=== PATIENT | female | born 1970 | race Caucasian/White ===

== ENCOUNTER 2016-11-11 13:08 | Emergency (ER) | payer OTHER ==
[~2016-11-11] VITALS: Ht 152.4 cm; Wt 93.0 kg
[2016-11-11 13:08] VITALS: BP 156/84
[2016-11-11] MEDS ORDERED: HYDR-3713 PO (13:25)
[2016-11-11] MEDS ORDERED: CEPH500C PO (13:25)
[2016-11-11] MEDS ORDERED: BACT800T5 PO (14:20)
[2016-11-11] MEDS ORDERED: NORCOTAB PO (14:20)
== END 2016-11-11 15:06 | disposition home or self-care (01) ==
LOC: M ED 14:18
DX: N76.4 Abscess of vulva (principal); E11.9 Type 2 diabetes mellitus without complications; F17.200 Nicotine dependence, unspecified, uncomplicated; Z79.899 Other long term (current) drug therapy; Z91.040 Latex allergy status

== ENCOUNTER 2020-04-17 20:57 | Emergency (ER) | payer OTHER ==
[~2020-04-17] VITALS: Ht 152.4 cm; Wt 91.9 kg
[~2020-04-17 20:57] MED LIST: BACT800T5 PO; CEPH500C PO; HYDR-3713 PO; HYDR-3715 PO
[2020-04-17] MEDS ORDERED: CETI-24 (21:19)
[2020-04-17] MEDS ORDERED: ASPIRIN 81 MG CHEW TABLET PO ONE (21:30)
[2020-04-17] MEDS: NITROGLYCERIN 0.4 MG SUBL TABLET SL PRN ×2 (21:43→21:48)
[2020-04-17 21:48] VITALS: BP 134/75
--- NOTE | 2020-04-17 21:49 | REPVR ---
PROCEDURE INFORMATION: Exam: XR Chest, 1 View Exam date and time: 04/17/2020 9:40 PM Age: 49 years old Clinical indication: Chest pain TECHNIQUE: Imaging protocol: XR of the chest Views: 1 view. COMPARISON: No relevant prior studies available. FINDINGS: Lungs: Degree of lung inflation is normal. No evidence of pulmonary edema. No focal consolidation or parenchymal lung mass. Pleural space: No pleural effusion or pneumothorax. Heart/Mediastinum: Cardiac silhouette appears normal. No adenopathy or hilar mass. Bones/joints: Osseous structures show no concerning abnormality. IMPRESSION: No acute or focal cardiopulmonary process. Electronically signed by: Uriah Araujo On 04/17/2020 21:49:03 PM
[2020-04-17 21:57] LABS: BASO # 0.1 10^3/uL (0.0-0.2); EOS # 0.4 10^3/uL (0.0-0.5); HEMATOCRIT 46.9 % (36.0-47.0); HEMOGLOBIN 16.1 g/dl (12.0-15.5); LYMPH # 3.7 10^3/uL (1.5-5.0); MEAN CORPUSCULAR HEMOGLOBIN 31.3 pg (27.0-33.0); MEAN CORPUSCULAR HGB CONC 34.3 g/dl (32.0-36.5); MEAN CORPUSCULAR VOLUME 91.2 fl (80.0-96.0); MONO # 0.8 10^3/uL (0.0-0.8); MONO % 7.4 % (0.0-5.0); NEUTROPHILS # 5.3 10^3/uL (1.5-8.5); NEUTROPHILS % 51.3 % (36.0-66.0); PLATELET COUNT, AUTOMATED 326 10^3/uL (150-450); RED BLOOD COUNT 5.14 10^6/uL (4.00-5.40); WHITE BLOOD COUNT 10.2 10^3/uL (4.0-10.0)
[2020-04-17 22:06] LABS: INR 0.92; PROTHROMBIN TIME 12.5 SECONDS (12.5-14.3)
[2020-04-17 22:33] LABS: ALBUMIN 3.3 GM/DL (3.2-5.2); ALT/SGPT 16 U/L (12-78); BILIRUBIN,DIRECT < 0.1 MG/DL (0.0-0.2); BILIRUBIN,TOTAL 0.3 MG/DL (0.2-1.0); BLOOD UREA NITROGEN 12 MG/DL (7-18); CALCIUM LEVEL 8.5 MG/DL (8.5-10.1); CARBON DIOXIDE LEVEL 26 MEQ/L (21-32); CHLORIDE LEVEL 98 MEQ/L (98-107); CK-MB VALUE MASS 2.1 NG/ML (<3.6); CPK CREATINE PHOSPHOKINASE 86 U/L (26-192); CREATININE FOR GFR 0.74 MG/DL (0.55-1.30); GLOMERULAR FILTRATION RATE > 60.0 (>51); GLUCOSE, FASTING 438 MG/DL (70-100); LIPASE 259 U/L (73-393); MB/CK RELATIVE INDEX 2.44 (< OR =4); POTASSIUM SERUM 4.3 MEQ/L (3.5-5.1); SODIUM LEVEL 132 MEQ/L (136-145); TOTAL PROTEIN 6.6 GM/DL (6.4-8.2); TROPONIN I 0.05 NG/ML (< 0.10)
[2020-04-17] MEDS ORDERED: ISOVUE-370 76% 100ML VIAL As Ordered ONE (22:42)
--- NOTE | 2020-04-17 23:08 | REPVR ---
PROCEDURE INFORMATION: Exam: CT Angiography Chest With Contrast Exam date and time: 04/17/2020 10:54 PM Age: 49 years old Clinical indication: Chest pain; Additional info: Chest pain, pleuritic TECHNIQUE: Imaging protocol: Computed tomographic angiography of the chest with intravenous contrast. 3D rendering (Not supervised by radiologist): MIP and/or 3D reconstructed images were created by the technologist. Radiation optimization: All CT scans at this facility use at least one of these dose optimization techniques: automated exposure control; mA and/or kV adjustment per patient size (includes targeted exams where dose is matched to clinical indication); or iterative reconstruction. Contrast material: ISO 370; Contrast volume: 75 ml; Contrast route: INTRAVENOUS (IV); COMPARISON: CR PORTABLE CHEST X-RAY 04/17/2020 9:32 PM FINDINGS: Pulmonary arteries: No focal pulmonary artery filling defect to suggest acute pulmonary embolus. Aorta: No thoracic aortic aneurysm or dissection. Lungs: Pulmonary vascular/interstitial pattern does not suggest active pulmonary edema. No suspicious lung mass or air space process. No central endobronchial lesion. Pleural space: No pleural effusion or pneumothorax. Heart: No overt cardiac enlargement or abnormal volume of pericardial fluid. Mediastinal space: Residual thymic tissue is present in the anterior mediastinum. Lymph nodes: No enlarged mediastinal lymph nodes. Adrenals: Left adrenal gland adenoma or hyperplasia. Bones/joints: Bony structures show no acute fracture or destructive process. Mild multilevel degenerative disc changes in the thoracic spine. 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 Soft tissues: No asymmetric abnormality of the extrathoracic soft tissues. Other findings: Sternal manubrial degenerative arthrosis and sclerosis suggesting a prior inflammatory process. IMPRESSION: 1. No evidence of acute pulmonary embolus. 2. No other acute or concerning focal intrathoracic abnormality. Electronically signed by: Uriah Araujo On 04/17/2020 23:08:23 PM
[2020-04-17] MEDS ORDERED: HumuLIN R (REGULAR) INSULIN (NovoLIN R) **100U/ML** PER UNIT IV ONE (23:30)
[2020-04-18] MEDS ORDERED: HumuLIN R (REGULAR) INSULIN (NovoLIN R) **100U/ML** PER UNIT IV ONE (01:30)
[2020-04-18 03:40] LABS: CK-MB VALUE MASS 2.5 NG/ML (<3.6); MB/CK RELATIVE INDEX 2.29 (< OR =4); TROPONIN I 0.12 NG/ML (< 0.10)
[2020-04-18] MEDS ORDERED: HEPARIN DRIP 25,000 UNITS in IV 1 EA IV SCH (04:34)
[2020-04-18] MEDS ORDERED: CLOPIDOGREL 300 MG TAB (PLAVIX) PO STA (04:34)
[2020-04-18] MEDS ORDERED: HEPARIN SOD (PORCINE) 5000UNITS/ML 1ML VIAL/SYRINGE IV ONE (04:45)
[2020-04-18 07:44] VITALS: BP 124/62
--- NOTE | 2020-04-18 10:21 | ECGEPIP ---
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
--- NOTE | 2020-04-18 10:24 | ECGEPIP ---
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
== END 2020-04-18 07:44 | disposition short-term general hospital (02) ==
LOC: M ED 20:57
DX: I20.0 Unstable angina (principal); R11.2 Nausea with vomiting, unspecified; J30.2 Other seasonal allergic rhinitis; F17.200 Nicotine dependence, unspecified, uncomplicated; Z91.040 Latex allergy status; Z79.899 Other long term (current) drug therapy
CPT/HCPCS: 71045; 71275; 80048; 80076; 82550; 82553; 83690; 85025; 85610; 85730; 93005; 93041; 94760; 96374; 96375; 96376; 99285; J1644; Q9967; U0002

== ENCOUNTER → 2021-11-21 | Outpatient (REF) ==
[~2021-11-21] MED LIST changes: +CETI-24
== END ==
LOC: M PLAIMG 10:29
PROVIDERS: ATTEND Internal Medicine
DX: Z00.00 Encounter for general adult medical examination without abnormal findings (principal)

== ENCOUNTER → 2024-01-17 | Outpatient (REF) | payer OTHER ==
[2024-01-17 17:09] LABS: MAU/CREAT RATIO 2.9 MCG/MG (0.0-30.0)
[2024-01-17 17:30] LABS: HEMATOCRIT 43.8 % (36.0-47.0); HEMOGLOBIN 14.5 g/dl (12.0-15.5); MEAN CORPUSCULAR HEMOGLOBIN 30.5 pg (27.0-33.0); MEAN CORPUSCULAR HGB CONC 33.1 g/dl (32.0-36.5); PLATELET COUNT, AUTOMATED 330 10^3/uL (150-450); RED BLOOD COUNT 4.76 10^6/uL (4.00-5.40); WHITE BLOOD COUNT 11.3 10^3/uL (4.0-10.0)
[2024-01-17 17:48] LABS: HEMOGLOBIN A1c 10.3 % (4.0-6.0)
[2024-01-17 17:56] LABS: ALBUMIN 3.4 G/DL (3.2-5.2); ALKALINE PHOSPHATASE 125 U/L (46-116); ALT/SGPT 17 U/L (7.0-40); AST/SGOT 12 U/L (<34); BILIRUBIN,TOTAL 0.4 MG/DL (0.3-1.2); BLOOD UREA NITROGEN 9 MG/DL (9-23); CALCIUM LEVEL 9.1 MG/DL (8.5-10.1); CARBON DIOXIDE LEVEL 28 MMOL/L (20-31); CHLORIDE LEVEL 110 MMOL/L (98-107); CHOLESTEROL LEVEL 216 MG/DL (<200); CHOLESTEROL RISK RATIO 4.36 (<5); CREATININE FOR GFR 0.47 MG/DL (0.55-1.30); GLOMERULAR FILTRATION RATE > 60.0 (>51); GLUCOSE, FASTING 195 MG/DL (60-100); HDL CHOLESTEROL 49.5 MG/DL (>40); LDL CHOLESTEROL 143.5 MG/DL (<100); MAGNESIUM LEVEL 1.6 MG/DL (1.8-2.4); NON-HDL-C 166.5 MG/DL; POTASSIUM SERUM 4.2 MMOL/L (3.5-5.1); SODIUM LEVEL 140 MMOL/L (136-145); THYROID STIMULATING HORMONE 2.144 uIU/ML (0.55-4.78); TOTAL PROTEIN 6.7 G/DL (5.7-8.2); TRIGLYCERIDES LEVEL 115 MG/DL (<150)
[2024-01-17 17:57] LABS: FOLATE 11.4 NG/ML (>5.4); TOTAL 25(OH) VITAMIN D 31.2 NG/ML (20.0-100.0)
[2024-01-17 17:58] LABS: VITAMIN B12 LEVEL 472 PG/ML (211-911)
== END ==
LOC: M LAB REF 16:07
PROVIDERS: ATTEND Physician Assistant
DX: E11.65 Type 2 diabetes mellitus with hyperglycemia (principal); R20.2 Paresthesia of skin; E55.9 Vitamin D deficiency, unspecified; Z83.49 Family history of other endocrine, nutritional and metabolic diseases; Z13.29 Encounter for screening for other suspected endocrine disorder; R25.2 Cramp and spasm

== ENCOUNTER → 2024-02-21 | Outpatient (CLI) | payer OTHER | LOC: M RAD 10:11 | PROVIDERS: ATTEND Physician Assistant | DX: F17.210 Nicotine dependence, cigarettes, uncomplicated (principal) ==

== ENCOUNTER → 2024-04-14 | Outpatient (REF) | LOC: M PLAIMG 13:22 | PROVIDERS: ATTEND Internal Medicine | DX: R52 Pain, unspecified (principal) ==

== ENCOUNTER → 2024-04-27 | Outpatient (REF) | payer OTHER ==
[2024-04-27 19:47] LABS: ALBUMIN 3.4 G/DL (3.2-5.2); ALKALINE PHOSPHATASE 120 U/L (35-104); ALT/SGPT 11 U/L (7.0-40); AST/SGOT 9 U/L (<34); BILIRUBIN,TOTAL 0.5 MG/DL (0.3-1.2); BLOOD UREA NITROGEN 10 MG/DL (9-23); CALCIUM LEVEL 9.1 MG/DL (8.5-10.1); CARBON DIOXIDE LEVEL 27 MMOL/L (20-31); CHLORIDE LEVEL 105 MMOL/L (98-107); CHOLESTEROL LEVEL 127 MG/DL (<200); CHOLESTEROL RISK RATIO 2.98 (<5); CREATININE FOR GFR 0.54 MG/DL (0.55-1.30); GLOMERULAR FILTRATION RATE > 60.0 (>51); GLUCOSE, FASTING 108 MG/DL (60-100); HDL CHOLESTEROL 42.5 MG/DL (>40); LDL CHOLESTEROL 65.3 MG/DL (<100); NON-HDL-C 84.5 MG/DL; POTASSIUM SERUM 4.3 MMOL/L (3.5-5.1); SODIUM LEVEL 139 MMOL/L (136-145); TRIGLYCERIDES LEVEL 96 MG/DL (<150)
== END ==
LOC: M LAB REF 16:47
PROVIDERS: ATTEND Physician Assistant
DX: E78.5 Hyperlipidemia, unspecified (principal)

== ENCOUNTER → 2024-08-10 | Outpatient (CLI) | payer OTHER | LOC: M WHC 09:54 | PROVIDERS: ATTEND Physician Assistant | DX: Z12.31 Encounter for screening mammogram for malignant neoplasm of breast (principal) ==

== ENCOUNTER → 2025-01-13 | Outpatient (REF) | payer OTHER ==
[2025-01-13 18:15] LABS: CREATININE, URINE 59.2 MG/DL; MALB URINE SIEMENS < 3.0 MG/L
== END ==
LOC: M LAB REF 16:58
PROVIDERS: ATTEND Nurse Practitioner Family
DX: E11.649 Type 2 diabetes mellitus with hypoglycemia without coma (principal)

== ENCOUNTER → 2025-04-02 | Outpatient (REF) | payer OTHER ==
[2025-04-02 18:22] LABS: CREATININE, URINE 36.8 MG/DL; MALB URINE SIEMENS < 3.0 MG/L
== END ==
LOC: M LAB REF 16:56
PROVIDERS: ATTEND Nurse Practitioner Family
DX: E11.649 Type 2 diabetes mellitus with hypoglycemia without coma (principal)